=== PATIENT | female | born 1970 | race Asian ===

== ENCOUNTER 2018-06-23 10:00 | Emergency (ER) | payer BC ==
[~2018-06-23] VITALS: Ht 152.4 cm; Wt 56.7 kg
[2018-06-23 10:21] VITALS: BP 137/82
--- NOTE | 2018-06-23 10:22 | NUR ---
PT AMBULATED TO BED 12
--- NOTE | 2018-06-23 10:23 | NUR ---
PT C/O COUGH X 3 DAYS. DENIES OTHER COMPLAITNS. PT DENIES N/V/D; SKIN IS INTACT, PINK/WARM/DRY; AAOX4, PERRL, WITH EVEN AND STEADY GAIT; LUNGS CLEAR BL, BREATHING UNLABORED; HR EVEN AND REGULAR, BL PERIPHERAL PULSES PRESENT; BS ACTIVE X4, NO TENDERNESS TO PALPATION, NO HEPATOSPLENOMEGALLY PALPATED, RESONANT TO PERCUSSION; PT DENIES ANY FEVER, CP, SOB, AT THIS TIME; PT STATES 0/10 PAIN AT THIS TIME; VSS; PATIENT POSITIONED FOR COMFORT; HOB ELEVATED; BEDRAILS UP X2; BED DOWN.
[2018-06-23 11:59] VITALS: BP 129/91
--- NOTE | 2018-06-23 11:59 | NUR ---
Patient discharged with v/s stable. Written and verbal after care instructions given and explained. Patient alert, oriented and verbalized understanding of instructions. Ambulatory with steady gait. All questions addressed prior to discharge. ID band removed. Patient advised to follow up with PMD. Rx of CLARITIN, PREDNISONE, PROMETHAZINE given. Patient educated on indication of medication including possible reaction and side effects. Opportunity to ask questions provided and answered.
== END 2018-06-23 11:59 | disposition home or self-care (01) ==
LOC: MED 10:00
DX: J30.9 Allergic rhinitis, unspecified (principal); R03.0 Elevated blood-pressure reading, without diagnosis of hypertension
CPT/HCPCS: 99283